=== PATIENT | female | born 1975 | race Caucasian/White ===

== ENCOUNTER → 2019-03-23 | Day surgery (SDC) | payer OTHER ==
[~2019-03-23] MED LIST: DEXAMETHASONE SOD PHOS INJ 4 MG/ML VIAL ONE; EPINEPHRINE HCL 1:1000 1ML 1 MG/ML AMP ONE; FENTANYL CITRATE/PF 100MCG/2 ML INJ ONE; FLONASE; GLYCOPYRROLATE INJ 1MG/ 5 ML SYR ONE; KETOROLAC TROMETHAMINE 30 MG/ML VIAL ONE; LIDOCAINE 1% W/EPINEPHRINE 20 ML VIAL ONE; LIDOCAINE HCL 2% LOCAL INJ 5 ML SDV VIAL INJ ONE; METOCLOPRAMIDE HCL 10 MG/2ML VIAL ONE; MIDAZOLAM HCL 2 MG/2 ML VIAL ONE; MORPHINE SULFATE INJ 4 MG/ML INJ 1ML ONE; NEOSTIGMINE 5 MG/5ML SYR ONE; NP THYROID60 MG PO; ONDANSETRON HCL INJ 2MG/ML 2ML 2 MG/ML VIAL ONE; PROPOFOL IV EMULSION 10 MG/ML 20 ML VIAL ONE; ROCURONIUM BROMIDE 10 MG/ML 5ML VIAL ONE; SEVOFLURANE INHAL SOLN 250 ML PEN BTL ONE
--- OUTSIDE RECORDS SUMMARY | 2019-03-23 06:02 | XMS REPORT | Clinical Summary ---
Author Author [facility] Address Unknown Phone Unavailable Care Team Providers Care Board Attendant Name Role Phone John Curry MD PCP Allergies No Known Allergies Medications End Date Status Medication Sig Dispensed Refills Start Date Active fluticasone (FLONASE) 50 1 spray into 0 mcg/actuation nasal spray each nostril. Active cholecalciferol, vitamin Take 2,000 0 D3, (VITAMIN D3) 2,000 Units by unit capsule capsule mouth daily. Active pediatric Chew. 0 [id number]-[id number] tablet,chewable Active drospirenone-ethinyl Take 1 tablet 0 estradiol (MICHAEL,OCELLA) by mouth 3-0.03 mg per tablet daily. Active thyroid, pork, (ARMOUR Take 60 mg by 0 THYROID) 60 mg tablet mouth daily. Active PROAIR HFA 90 INHALE 2 17 Inhaler 0 mcg/actuation PUFFS EVERY 6 8 inhalerIndications: Acute (SIX) HOURS bronchitis due to other NEEDED FOR specified organisms WHEEZING FOR UP TO 30 DAYS. 12/22/2019 Active ipratropium (ATROVENT) 2 sprays into 30 mL 12 0.03 % nasal each nostril 9 sprayIndications: Chronic every 12 maxillary sinusitis (twelve) hours. 04/29/2018 codeine-guaifenesin Take 5 mL by 180 mL 0 (GUAIFENESIN AC) 10-100 mouth 3 8 mg/5 mL (three) times liquidIndications: a day as Pharyngitis, unspecified needed for etiology cough for up to 5 days. 09/28/2018 amoxicillin-pot Take 1 tablet 14 tablet 0 clavulanate (AUGMENTIN) by mouth 2 8 875-125 mg per (two) times a tabletIndications: Acute day for 7 bacterial sinusitis days. 10/18/2018 azithromycin (ZITHROMAX) Take 2 6 tablet 0 250 MG tabletIndications: tablets the 8 Acute bronchitis due to first day, other specified organisms then 1 tablet daily for 4 days. 10/18/2018 codeine-guaifenesin Take 5 mL by 120 mL 0 (GUAIFENESIN AC) 10-100 mouth 3 8 mg/5 mL (three) times liquidIndications: Acute a day as bronchitis due to other needed for specified organisms cough for up to 5 days. 10/18/2018 methylPREDNISolone follow 21 tablet 0 (MEDROL, TOM,) 4 mg package 8 tabletIndications: Acute directions bronchitis due to other specified organisms 11/09/2018 Discontinued albuterol (PROAIR HFA) 90 Inhale 2 18 g 0 mcg/actuation puffs every 6 8 inhalerIndications: Acute (six) hours bronchitis due to other as needed for specified organisms wheezing for up to 30 days. 12/29/2018 doxycycline (MONODOX) 100 Take 1 14 capsule 0 MG capsuleIndications: capsule (100 9 Chronic maxillary mg total) by sinusitis mouth 2 (two) times a day for 7 days. Status Hospital, Clinic, or Ordered Dose Route Frequency Start End Date Other Facility Date Administered Medication Ended triamcinolone acetonide 80 mg IM once 04/24/20 (KENALOG-40) injection 80 18 8 mgIndications: Pharyngitis, unspecified etiology Ended methylPREDNISolone 80 mg IM once 09/21/20 acetate (DEPO-MEDROL) 18 8 injection 80 mgIndications: Acute bacterial sinusitis Ended methylPREDNISolone 80 mg IM once 10/07/20 acetate (DEPO-MEDROL) 18 8 injection 80 mgIndications: Pharyngitis, unspecified etiology Discontinued dexamethasone (DECADRON) 4 mg IM every 6 hours 10/07/20 injection 4 18 9 mgIndications: Pharyngitis, unspecified etiology Active Problems Problem Noted Date Acquired hypothyroidism 09/21/2018 Last Assessment & Plan: Stable. Continue current dose. Recheck level Follow up with bean sprout grower Nasal septal deviation 03/20/2018 Last Assessment & Plan: Referred to ENT for proper eval of nasal septum regarding CR. Cystitis 01/30/2018 Last Assessment & Plan: Normal pelvic exam S/s suggestive or cystitis Empiric treatment with bactrim; monitor response rtc prn Vaginitis 01/30/2018 Anemia 09/10/2017 Last Assessment & Plan: Stable. Recheck h/h Follow up in 3 months Chronic maxillary sinusitis 09/08/2017 Last Assessment & Plan: Hx and exam findings consistent with acute bacterial sinusitis. Nasal saline sprays. Nasal steroids per medication orders. doxycycline per medication orders. Screening for diabetes mellitus 09/08/2017 Body mass index (bmi) 30.0-30.9, adult 09/08/2017 Vitamin D deficiency 09/08/2017 Multiple thyroid nodules 09/08/2017 Last Assessment & Plan: Had US thyroid Dec 26, [address] Christensen, monitoring antibody levels Hot flashes 09/08/2017 Resolved Problems Problem Noted Date Resolved Date Acute bacterial sinusitis 09/21/2018 12/23/2018 Last Assessment & Plan: Hx and exam findings consistent with acute bacterial sinusitis. Nasal saline sprays. Nasal steroids per medication orders. Antihistamines per medication orders. Augmentin per medication orders. Acute bronchitis due to other specified organisms 04/30/2018 12/23/2018 Last Assessment & Plan: Hx and exam findings consistent with rhinosinusitis Plan: Cough syrup Rest, tylenol prn, hydration Return to clinic prn Fatigue 09/08/2017 12/23/2018 Last Assessment & Plan: Fatigue symptoms have greatly improved since starting [place] Thyroid by her bean sprout grower and possibly also by oral contraceptive therapy due to her menorrhagia and secondary anemia. She will continue to follow with her bean sprout grower and her flexographic press operator. She will obtain CPAP machine and start using it as soon as available. Follow-up in the office in 3 months for referral to ENT. Encounters Care Team Description Date Type Specialty Arlet Guillaume MD Screening for malignant neoplasm of breast 01/21/2019 Hospital Radiology Encounter Arlet Guillaume MD Screening for malignant neoplasm of breast (Primary Dx) 01/19/2019 Transcribe Access Orders John Curry MD Anemia, unspecified type (Primary Dx); Acquired hypothyroidism; Chronic maxillary sinusitis 12/22/2018 Office Visit Family Medicine John Curry MD Acute bronchitis due to other specified organisms 11/09/2018 Refill Family Medicine John Curry MD Acute bronchitis due to other specified organisms (Primary Dx) 10/13/2018 Orders Only Family John Holt MD Pharyngitis, unspecified etiology (Primary Dx) 10/07/2018 Office Visit Family John Holt MD Acute bacterial sinusitis (Primary Dx); Vitamin D deficiency; Iron deficiency anemia, unspecified iron deficiency anemia type; Acquired hypothyroidism; Screening for diabetes mellitus; Body mass index (bmi) 30.0-30.9, adult 09/21/2018 Office Visit Family John Holt MD Fatigue, unspecified type (Primary Dx) 06/19/2018 Office Visit Family Medicine Madeleine Gan MA 05/07/2018 Documentation Neurology Madeleine Gan MA 05/07/2018 Orders Only Neurology Emeli Mathew MD CR (obstructive sleep apnea) (Primary Dx); Chronic seasonal allergic rhinitis, unspecified trigger 05/06/2018 Office Visit Neurology John Curry MD Pharyngitis, unspecified etiology (Primary Dx) 04/24/2018 Office Visit Family Medicine Emeli Mathew MD CR (obstructive sleep apnea) (Primary Dx) 04/23/2018 Orders Only Neurology Emeli Mathew MD CR (obstructive sleep apnea) 04/12/2018 Hospital Sleep Medicine Encounter after 03/22/2018 Immunizations Name Dates Previously Given Next Due Influenza Trivalent 09/08/2017 Family History Medical History Relation Name Comments Heart attack Father Breast cancer Mother Relation Name Status Comments Father Mother Social History Date Tobacco Use Types Packs/Day Years Used Never Smoker Smokeless Tobacco: Never Used Alcohol Use Drinks/Week oz/Week Comments Yes rarely Sex Assigned at Date Recorded Not on file Industry Job Start Date Occupation Not on file Not on file Not on file Travel End Travel History Travel Start No recent travel history available. Last Filed Vital Signs Time Taken Vital Sign Reading 12/22/2018 8:55 AM TIRE TESTER Blood Pressure 135/83 12/22/2018 8:55 AM TIRE TESTER Pulse 76 12/22/2018 8:55 AM TIRE TESTER Temperature 36.4 C (97.6 F) 05/06/2018 2:12 PM CDT Respiratory Rate 20 12/22/2018 8:55 AM TIRE TESTER Oxygen Saturation 100% - Inhaled Oxygen - Concentration 12/22/2018 8:55 AM TIRE TESTER Weight 85.7 kg (189 lb) 12/22/2018 8:55 AM TIRE TESTER Height 162.6 cm (5' 4") 12/22/2018 8:55 AM TIRE TESTER Body Mass Index 32.44 Plan of Treatment Care Team Description Date Type Specialty John Curyr MD [address] [place] [address] [phone] 04/06/2019 Office Visit Family Medicine Health Maintenance Due Date Last Done Comments CERVICAL CANCER SCREENING 1994 INFLUENZA VACCINE 06/24/2019 09/08/2017, 09/08/2017 Procedures Comments Procedure Name Priority Date/Time Associated Diagnosis MAMMO BREAST SCREEN Routine 01/21/2019 Screening for malignant TOMOSYNTHESIS BILATERAL 12:40 PM TIRE TESTER neoplasm of breast PATHOLOGY CONSULTATION Routine 12/22/2018 10:08 AM TIRE TESTER CONSULT, SPECIMEN A Routine 12/22/2018 10:08 AM TIRE TESTER BILIRUBIN, FRACTIONATED Routine 12/22/2018 10:08 AM TIRE TESTER HOMOCYSTINE, PLASMA Routine 12/22/2018 10:08 AM TIRE TESTER METHYLMALONIC ACID, SERUM Routine 12/22/2018 10:08 AM TIRE TESTER T3 Routine 12/22/2018 Acquired hypothyroidism 10:08 AM TIRE TESTER T4, FREE Routine 12/22/2018 Acquired hypothyroidism 10:08 AM TIRE TESTER THYROID STIMULATING Routine 12/22/2018 Acquired hypothyroidism HORMONE 10:08 AM TIRE TESTER LDH Routine 12/22/2018 Anemia, unspecified type 10:08 AM TIRE TESTER HAPTOGLOBIN Routine 12/22/2018 Anemia, unspecified type 10:08 AM TIRE TESTER RETICULOCYTE COUNT, Routine 12/22/2018 Anemia, unspecified type AUTOMATED 10:08 AM TIRE TESTER CBC (INCLUDES DIFF/PLT) Routine 12/22/2018 Anemia, unspecified type WITH PATHOLOGIST REVIEW 10:08 AM TIRE TESTER FOLATE LEVEL Routine 12/22/2018 Anemia, unspecified type 10:08 AM TIRE TESTER VITAMIN B12 LEVEL Routine 12/22/2018 Anemia, unspecified type 10:08 AM TIRE TESTER TRANSFERRIN LEVEL Routine 12/22/2018 Anemia, unspecified type 10:08 AM TIRE TESTER FERRITIN LEVEL Routine 12/22/2018 Anemia, unspecified type 10:08 AM TIRE TESTER VITAMIN D 25 HYDROXY Routine 09/21/2018 Vitamin D deficiency LEVEL 12:00 AM CDT LIPID PANEL WITH REFLEX Routine 09/21/2018 Iron deficiency anemia, TO DIRECT LDL 12:00 AM CDT unspecified iron deficiency anemia type COMPREHENSIVE METABOLIC Routine 09/21/2018 Iron deficiency anemia, PANEL 12:00 AM CDT unspecified iron deficiency anemia type T4, FREE Routine 09/21/2018 Acquired hypothyroidism 12:00 AM CDT THYROID STIMULATING Routine 09/21/2018 Acquired hypothyroidism HORMONE 12:00 AM CDT HEMOGLOBIN A1C Routine 09/21/2018 Screening for diabetes 12:00 AM CDT mellitus Body mass index (bmi) 30.0-30.9, adult CBC WITH PLATELET AND Routine 09/21/2018 Iron deficiency anemia, DIFFERENTIAL 12:00 AM CDT unspecified iron deficiency anemia type TOTAL IRON BINDING Routine 09/21/2018 Iron deficiency anemia, CAPACITY 12:00 AM CDT unspecified iron deficiency anemia type TRANSFERRIN LEVEL Routine 09/21/2018 Iron deficiency anemia, 12:00 AM CDT unspecified iron deficiency anemia type FERRITIN LEVEL Routine 09/21/2018 Iron deficiency anemia, 12:00 AM CDT unspecified iron deficiency anemia type POCT RAPID STREP A Routine 04/24/2018 Pharyngitis, unspecified 4:14 PM CDT etiology GENERAL SLEEP STUDY Routine 04/24/2018 CR (obstructive sleep 2:37 PM CDT apnea) after 03/22/2018 Results * Mammo Breast Screen Tomosynthesis Bilateral (01/21/2019 12:40 PM TIRE TESTER) Narrative Performed At PROCEDURE: MAMMO BREAST SCREEN TOMOSYNTHESIS BILATERAL [facility] Computer aided detection was utilized for the interpretation of the digital bilateral screening mammography with tomosynthesis. COMPARISON: Prior studies dating back to 09/29/2014 DENSITY: The breast parenchyma is heterogeneously dense, decreasing the sensitivity of the study. There is postsurgical changes in the right breast. There are benign scattered calcifications in both breasts. There is no suspicious new masses, architectural distortions or grouped calcifications. IMPRESSION:No mammographic evidence of malignancy. RECOMMENDATION: Comparison with physical exam and annual screening mammography. BI-RADS 2: Benign. This facility is accredited by the [employer] for Mammography. A negative x-ray report should not delay biopsy if a dominant or clinically suspicious mass is present.Not all cancers are identified by x-ray. [id number] Performing Organization Address City/[facility]/Zipcode Phone Number ERIN [address] [place] [address] * Bilirubin, Fractionated (12/22/2018 10:08 AM TIRE TESTER) Total bilirubin 0.2 0.2 - 1.2 mg/dL [facility] Bilirubin direct 0.0 < OR=0.2 mg/dL [employer] [facility] Bilirubin, indirect 0.2 0.2 - 1.2 mg/dL (calc) [employer] [facility] Narrative Performed At FASTING:NO [facility] FASTING: NO Resulting Agency Comment Performing Organization Information: Site ID: [id number] Name: [facility] Address: [address] [place] [address] Director: Litzy López Performing Organization Address City/[facility]/Zipcode Phone Number [employer] [place] [address] [place] [phone] * PATHOLOGY CONSULTATION (12/22/2018 10:08 AM TIRE TESTER) Pathologist Comment: [facility] Litzy López MD, Board [facility] Certified in Anatomic Pathology, [phone] (electronic signature) Narrative Performed At FASTING:NO [facility] FASTING: NO Resulting Agency Comment Performing Organization Information: Site ID: [id number] Name: [email or web address] [email or web address] [facility], Address: [address] [place] [address] Director: Litzy López MD Performing Organization Address [facility] Phone Number [facility] [address] [place] [phone] [facility] * CONSULT, SPECIMEN A (12/22/2018 10:08 AM TIRE TESTER) Source Comment: PATHOLOGY REVIEW OF [facility] PERIPHERAL SMEARS [facility] Micro description Comment: [facility] The peripheral blood smear has [facility] been reviewed. Diagnosis Comment: [facility] WBC morphology appears [facility] unremarkable. Normochromic normocytic anemia. Estimated platelet count appears adequate. Comment Comment: [facility] Clinical correlation and [facility] follow up are recommended if clinically indicated. Narrative Performed At FASTING:NO [facility] FASTING: NO Resulting Agency Comment Performing Organization Information: Site ID: [id number] Name: [email or web address] [email or web address] [facility], Address: [address] [place] [address] Director: Litzy López MD Performing Organization Address [facility] Phone Number [facility] [address] [place] [phone] [facility] * CBC (INCLUDES DIFF/PLT) WITH PATHOLOGIST REVIEW (12/22/2018 10:08 AM TIRE TESTER) WBC 9.3 3.8 - 10.8 Thousand/uL [facility] RBC 3.78 (L) 3.80 - 5.10 Million/uL [facility] HGB 10.5 (L) 11.7 - 15.5 g/dL [facility] HCT 32.2 (L) 35.0 - 45.0 % [facility] MCV 85.2 80.0 - 100.0 fL [facility] MCH 27.8 27.0 - 33.0 pg [facility] MCHC 32.6 32.0 - 36.0 g/dL [facility] RDW 13.3 11.0 - 15.0 % [facility] Platelet count 330 140 - 400 Thousand/uL [employer] [place] MPV 10.3 7.5 - 12.5 fL [facility] [employer] [place] Neutrophils, absolute 5,487 1,500 - 7,800 cells/uL [facility] [employer] [place] Lymphocytes, absolute 3,069 850 - 3,900 cells/uL [facility] [employer] [place] Monocytes, absolute 651 200 - 950 cells/uL [facility] [employer] [place] Eosinophils, absolute 93 15 - 500 cells/uL [facility] [employer] [place] Basophils, absolute 0 0 - 200 cells/uL [facility] [employer] [place] Neutrophils 59 % [facility] [employer] [place] Lymphocytes 33 % [facility] [employer] [place] Monocytes 7 % [facility] [employer] [place] Eosinophils 1 % [facility] [employer] [place] Basophils + RC 0 % [facility] [employer] [place] Comment Comment: PATHOLOGIST REVIEW [employer] WILL REPORT UNDER SEPARATE [place] COVER Specimen Blood Narrative Performed At FASTING:NO [facility] FASTING: NO Resulting Agency Comment Performing Organization Information: Site ID: [id number] Name: [facility] Address: [address] [place] [phone] Director: Litzy López Performing Organization Address [facility] [place] [address] * Reticulocyte count, automated (12/22/2018 10:08 AM TIRE TESTER) Retic count, manual 1.4 % [facility] [employer] [place] Retic absolute, auto 53,480 20,000 - 80,000 cells/uL [facility] [employer] [place] Specimen Blood Narrative Performed At FASTING:NO [facility] FASTING: NO Resulting Agency Comment Performing Organization Information: Site ID: [id number] Name: [facility] Address: [address] [place] [phone] Director: Litzy López Performing Organization Address [facility] [place] [address] * Homocystine, plasma (12/22/2018 10:08 AM TIRE TESTER) Homocysteine 6.1 <10.4 umol/L [facility] Comment: DIAGNOSTICS/[facility] Homocysteine is increased by [facility] functional deficiency of folate or vitamin B12. Testing for methylmalonic acid differentiates between these deficiencies. Other causes of increased homocysteine include renal failure, folate antagonists such as methotrexate and phenytoin, and exposure to nitrous oxide. Narrative Performed At FASTING:NO [facility] FASTING: NO Resulting Agency Comment Performing Organization Information: Site ID: [id number] Name: [facility], Address: [address] [place] [phone] Director: Sepideh Gipson MD,PhD,BEE Performing Organization Address [facility] Phone Number [employer] [address] [place] [address] [facility] [address] * Methylmalonic acid, serum (12/22/2018 10:08 AM TIRE TESTER) Methylmalonic acid 168 87 - 318 nmol/L [facility] Comment: [employer] This test was developed and [facility] its analytical performance characteristics have been determined by [facility]. It has not been cleared or approved by FDA. This assay has been validated pursuant to the CLIA regulations and is used for clinical purposes. Narrative Performed At FASTING:NO [facility] FASTING: NO Resulting Agency Comment Performing Organization Information: Site ID: EZ Name: [facility], Address: [address] [place] [phone] Director: Sepideh Gipson MD,PhD,BEE Performing Organization Address [facility] Phone Number [employer] [address] [place] [address] [facility] [address] * T3 (12/22/2018 10:08 AM TIRE TESTER) T3 239 (H) 76 - 181 ng/dL [employer] [place] Specimen Blood Narrative Performed At FASTING:NO [facility] FASTING: NO Resulting Agency Comment Performing Organization Information: Site ID: RGA Name: [facility] Address: [address] [place] [phone] Director: Litzy López Performing Organization Address [facility] Phone Number [employer] [address] [address] * Transferrin level (12/22/2018 10:08 AM TIRE TESTER) Only the most recent of 2 results within the time period is included. Transferrin 256 188 - 341 mg/dL [employer] II Specimen Blood Narrative Performed At FASTING:NO [facility] FASTING: NO Resulting Agency Comment Performing Organization Information: Site ID: [id number] Name: [facility] Address: [address] [place] [address] Director: Dr. Karel Barry Performing Organization Address City/[facility] Phone Number [email or web address] [address] [place] [address] II * Thyroid stimulating hormone (12/22/2018 10:08 AM TIRE TESTER) Only the most recent of 2 results within the time period is included. TSH 2.09 mIU/L [employer] Comment: [place] Reference Range > or=20 Years0.40-4.50 Ranges First trimester0.26-2.66 Second trimester 0.55-2.73 Third trimester0.43-2.91 Specimen Blood Narrative Performed At FASTING:NO [facility] FASTING: NO Resulting Agency Comment Performing Organization Information: Site ID: RGA Name: [facility] Address: [address] [place] [phone] Director: Litzy López Performing Organization Address [facility] Phone Number [employer] [address] [address] * T4, free (12/22/2018 10:08 AM TIRE TESTER) Only the most recent of 2 results within the time period is included. T4, free 1.3 0.8 - 1.8 ng/dL [employer] [place] Specimen Blood Narrative Performed At FASTING:NO [facility] FASTING: NO Resulting Agency Comment Performing Organization Information: Site ID: RGA Name: [facility] Address: [address] [place] [phone] Director: Litzy López Performing Organization Address [facility] Phone Number [employer] [address] [address] * LDH (12/22/2018 10:08 AM TIRE TESTER) LDH 119 100 - 200 U/L [employer] [place] Specimen Blood Narrative Performed At FASTING:NO [facility] FASTING: NO Resulting Agency Comment Performing Organization Information: Site ID: RGA Name: [facility] Address: [address] [place] [phone] Director: Litzy López Performing Organization Address [facility] Phone Number [employer] [address] [address] * Haptoglobin (12/22/2018 10:08 AM TIRE TESTER) Haptoglobin 162 43 - 212 mg/dL [employer] Specimen Blood Narrative Performed At FASTING:NO [facility] FASTING: NO Resulting Agency Comment Performing Organization Information: Site ID: [id number] Name: [facility] Address: [address] [place] [phone] Director: Dr. Karel Barry Performing Organization Address [facility] Phone Number [employer] [address] II * Folate level (12/22/2018 10:08 AM TIRE TESTER) Folate 12.8 ng/mL [employer] Comment: [place] Reference Range Low: <3.4 Borderline:3.4-5.4 Normal:>5.4 Specimen Blood Narrative Performed At FASTING:NO [facility] FASTING: NO Resulting Agency Comment Performing Organization Information: Site ID: RGA Name: [facility] Address: [address] [place] [phone] Director: Litzy López Performing Organization Address [facility] Phone Number [employer] [address] [address] * Ferritin level (12/22/2018 10:08 AM TIRE TESTER) Only the most recent of 2 results within the time period is included. Ferritin level 77 10 - 232 ng/mL [employer] [place] Specimen Blood Narrative Performed At FASTING:NO [facility] FASTING: NO Resulting Agency Comment Performing Organization Information: Site ID: RGA Name: [facility] Address: [address] [place] [phone] Director: Litzy López Performing Organization Address [facility] Phone Number [employer] [address] [address] * Vitamin B12 level (12/22/2018 10:08 AM TIRE TESTER) Vitamin B12 346 200 - 1,100 pg/mL [facility] Comment: [place] Please Note: Although the reference range for vitamin B12 is 200-1100 pg/mL, it has been reported that between 5 and 10% of patients with values between 200 and 400 pg/mL may experience neuropsychiatric and hematologic abnormalities due to occult B12 deficiency; less than 1% of patients with values above 400 pg/mL will have symptoms. Specimen Blood Narrative Performed At FASTING:NO QUEST FASTING: NO Resulting Agency Comment Performing Organization Information: Site ID: [facility] Name: [facility] Address: [address] [place] [phone] Director: Litzy López Performing Organization Address [facility] [place] [address] * LIPID PANEL WITH REFLEX TO DIRECT LDL (09/21/2018 12:00 AM CDT) Cholesterol, total 159 <200 mg/dL [facility] HDL cholesterol 47 (L) >50 mg/dL [employer] [facility] Triglycerides 150 (H) <150 mg/dL [employer] [facility] LDL cholesterol 87 mg/dL (calc) [employer] calculated Comment: [place] Reference range: <100 Desirable range <100 mg/dL for primary prevention; <70 mg/dL for patients with CHD or diabetic patients with > or=2 CHD risk factors. LDL-C is now calculated using the Bhupinder-Tyler calculation, which is a validated novel method providing better accuracy than the Friedewald equation in the estimation of LDL-C. Bhupinder TESFAYE et al. YIFAN. 2013;310(19): 9909-1353 (http://education.ToyTalk.com/faq/FQB149) Cholesterol/HDL ratio 3.4 <5.0 (calc) [employer] [place] Non-HDL cholesterol 112 <130 mg/dL (calc) [employer] Comment: [place] For patients with diabetes plus 1 major ASCVD risk factor, treating to a non-HDL-C goal of <100 mg/dL (LDL-C of <70 mg/dL) is considered a therapeutic option. Narrative Performed At FASTING:YES QUEST FASTING: YES Resulting Agency Comment Performing Organization Information: Site ID: A Name: [facility] Address: [address] [place] [phone] Director: Litzy López Performing Organization Address [facility] Phone Number [facility] [place] [address] [place] [address] * Total iron binding capacity (09/21/2018 12:00 AM CDT) Iron level 54 40 - 190 mcg/dL [employer] [place] Iron binding capacity 343 250 - 450 mcg/dL (calc) [employer] [place] Iron saturation 16 11 - 50 % (calc) [employer] [place] Specimen Blood Narrative Performed At FASTING:YES QUEST FASTING: YES Resulting Agency Comment Performing Organization Information: Site ID: [facility] Name: [facility] Address: [address] [place] [phone] Director: Litzy López Performing Organization Address [facility] [place] [address] * Vitamin D 25 hydroxy level (09/21/2018 12:00 AM CDT) Vitamin D, 25-hydroxy 38 30 - 100 ng/mL [employer] Comment: [place] Vitamin D Status 25-OH Vitamin D: Deficiency: <20 ng/mL Insufficiency: 20 - 29 ng/mL Optimal: > or=30 ng/mL For 25-OH Vitamin D testing on patients on D2-supplementation and patients for whom quantitation of D2 and D3 fractions is required, the QuestAssureD(TM) 25-OH VIT D, (D2,D3), LC/MS/MS is recommended: order code 67134 (patients >2yrs). For more information on this test, go to: http://education.1000 Corks.Playrific/faq/APE946 (This link is being provided for informational/educational purposes only.) Specimen Blood Narrative Performed At FASTING:YES QUEST FASTING: YES Resulting Agency Comment Performing Organization Information: Site ID: [facility] Name: [facility] Address: [address] [place] [phone] Director: Litzy López Performing Organization Address [facility] Phone Number [facility] [address] [phone] * CBC with platelet and differential (09/21/2018 12:00 AM CDT) WBC 8.4 3.8 - 10.8 Thousand/uL [employer] [place] RBC 4.00 3.80 - 5.10 Million/uL [employer] [place] HGB 11.0 (L) 11.7 - 15.5 g/dL [employer] [place] HCT 33.3 (L) 35.0 - 45.0 % [employer] [place] MCV 83.3 80.0 - 100.0 fL [employer] [place] MCH 27.5 27.0 - 33.0 pg [employer] [place] MCHC 33.0 32.0 - 36.0 g/dL [employer] [place] RDW 13.1 11.0 - 15.0 % [employer] [place] Platelet count 330 140 - 400 Thousand/uL [employer] [place] MPV 10.2 7.5 - 12.5 fL [employer] [place] Neutrophils, absolute 4,914 1,500 - 7,800 cells/uL [employer] [place] Lymphocytes, absolute 2,848 850 - 3,900 cells/uL [employer] [place] Monocytes, absolute 512 200 - 950 cells/uL [employer] [place] Eosinophils, absolute 92 15 - 500 cells/uL [employer] [place] Basophils, absolute 34 0 - 200 cells/uL [employer] [place] Neutrophils 58.5 % [employer] [place] Lymphocytes 33.9 % [employer] [place] Monocytes 6.1 % [employer] [place] Eosinophils 1.1 % [employer] [place] Basophils + RC 0.4 % [employer] [place] Specimen Blood Narrative Performed At FASTING:YES QUEST FASTING: YES Resulting Agency Comment Performing Organization Information: Site ID: [facility] Name: [facility] Address: [address] [place] [phone] Director: Litzy López Performing Organization Address City/State/Zipcode Phone Number [facility] [employer] [place] [phone] * Hemoglobin A1c (09/21/2018 12:00 AM CDT) Hemoglobin A1C 5.3 <5.7 % of total Hgb [employer] Comment: [place] For the purpose of screening for the presence of diabetes: <5.7% Consistent with the absence of diabetes 5.7-6.4%Consistent with increased risk for diabetes (predi abetes) > or=6.5%Consistent with diabetes This assay result is consistent with a decreased risk of diabetes. Currently, no consensus exists regarding use of hemoglobin A1c for diagnosis of diabetes in children. According to [place] Diabetes Association (ADA) guidelines, hemoglobin A1c <7.0% represents optimal control in non- diabetic patients. Different metrics may apply to specific patient populations. Standards of Medical Care in Diabetes(ADA). Specimen Blood Narrative Performed At FASTING:YES QUEST FASTING: YES Resulting Agency Comment Performing Organization Information: Site ID: [facility] Name: [facility] Address: [address] [place] [address] Director: Litzy López Performing Organization Address City/State/Zipcode Phone Number [place] [employer] [place] [address] [place] [phone] * Comprehensive metabolic panel (09/21/2018 12:00 AM CDT) Glucose 118 (H) 65 - 99 mg/dL [employer] Comment: [place] Fasting reference interval For someone without known diabetes, a glucose value between 100 and 125 mg/dL is consistent with prediabetes and should be confirmed with a follow-up test. BUN, whole blood 9 7 - 25 mg/dL [employer] [place] Creatinine 0.57 0.50 - 1.10 mg/dL [employer] [place] EGFR Non-Afr. [place] 112 > OR=60 mL/min/1.73m2 [employer] [place] EGFR 130 > OR=60 mL/min/1.73m2 [employer] [place] BUN/creatinine ratio NOT APPLICABLE 6 - 22 (calc) [employer] [place] Sodium 140 135 - 146 mmol/L [employer] [place] Potassium 4.1 3.5 - 5.3 mmol/L [employer] [place] Chloride 108 98 - 110 mmol/L [employer] [place] CO2 24 20 - 32 mmol/L [employer] [place] Calcium 9.1 8.6 - 10.2 mg/dL [employer] [place] Protein 6.9 6.1 - 8.1 g/dL [employer] [place] Albumin, S 3.9 3.6 - 5.1 g/dL [employer] [place] Globulin, total 3.0 1.9 - 3.7 g/dL (calc) [employer] [place] Albumin/globulin ratio 1.3 1.0 - 2.5 (calc) [employer] [place] Total bilirubin 0.3 0.2 - 1.2 mg/dL [employer] [place] Alkaline phosphatase 67 33 - 115 U/L [employer] [place] AST 12 10 - 35 U/L [employer] [place] ALT 10 6 - 29 U/L [employer] [place] Specimen Blood Narrative Performed At FASTING:YES QUEST FASTING: YES Resulting Agency Comment Performing Organization Information: Site ID: [facility] Name: [facility] Address: [address] [place] [address] Director: Litzy López Performing Organization Address City/State/Zipcode Phone Number [facility] [place] [phone] [place] [address] * POC rapid strep A (04/24/2018 4:14 PM CDT) Rapid strep A antigen Negative Negative result Specimen Swab * General sleep study (04/24/2018 2:37 PM CDT) Narrative Performed At after 03/22/2018 Insurance Payer Benefit Subscriber ID Type Phone Address Plan / Group CIGNA CIGNA OPEN xxxxxxxxxxx HMO ACCESS/NET WORK Advance Directives Patient has advance care planning documents on file. For more information, mich pereyra contact: Milton Anne [address] [place] [address]
--- OUTSIDE RECORDS SUMMARY | 2019-03-23 06:02 | XMS REPORT | Clinical Summary ---
Author Author [facility] Address Unknown Phone Unavailable Care Team Providers Care Accounting Auditor Name Role Phone Pcp, No PCP Unavailable Allergies No Known Allergies Medications End Date Status Medication Sig Dispensed Refills Start Date Active fluticasone (FLONASE) 50 1 spray by 0 mcg/actuation nasal spray Nasal route daily. Active Problems Not on file Family History Medical History Relation Name Comments Heart disease Father Cancer Mother Relation Name Status Comments Father Mother Social History Date Tobacco Use Types Packs/Day Years Used Never Smoker Alcohol Use Drinks/Week oz/Week Comments No Sex Assigned at Date Recorded Not on file Industry Job Start Date Occupation Not on file Not on file Not on file Travel End Travel History Travel Start No recent travel history available. Last Filed Vital Signs Not on file Plan of Treatment Not on file Results Not on fileafter 03/22/2018 Insurance Payer Benefit Subscriber ID Type Phone Address Plan / Group CIGNA - MGD CARE CIGNA xxxxxxxxxxx HMO/POS HMO/POS/OP EN ACCESS
--- OUTSIDE RECORDS SUMMARY | 2019-03-23 06:02 | XMS REPORT ---
Author Author [facility] Address Unknown Phone Unavailable Care Team Providers Care Teaching Fellow Name Role Phone Andrew ANTONIO Unavailable Unavailable Problems This patient has no known problems. Allergies, Adverse Reactions, Alerts This patient has no known allergies or adverse reactions. Medications This patient has no known medications. Results Test Description Test Time Test Comments Text Results Atomic Results Result Comments CYTOLOGY 2017-02-19 08:58:00 Medical Cytology Report Case: [id number] Aut horizing Provider: Fady Antonio MD Ordering Provider: Fady Antonio MD Ordering Location: [facility] Radiology Main Collected: 02/18/2017 1330 Pathologist: Baltaazr العراقي MD Received: 02/18/2017 1332 Specimen: Thyroid, Left DIAGNOSTIC CATEGORY: BENIGNLEFT LOBE THYROID GLAND NODULE, FNA BY RADIOLOGIST (COLTON)(DIRECT SMEARS AND CELL BLOCK OF ASPIRATE): - BENIGN FOLLICULAR NODULE (ADENOMATOID NODULE) Signing Pathologist Direct Phone Line: [phone] smears and cell block material material show nests and sheets of bland follicular cells associated with background colloid.77092, 01913, 55763(1.0 x 1.0 x 1.2 cm) left lower pole thyroid noduleLEFT LOWER POLE THYROID NODULE FNA3 passes; 5 direct smear slides; cell blockCollected: [id number]: [id number] NUMBER OF FOLLICULAR CELLS FOR EVALUATION (1:32PM, RL)[facility], Department of Pathology, [address] [place] [address], [facility], [address] [place] [address], CYTOLOGY 2017-01-20 18:08:00 Medical Cytology Report Case: [id number] Aut horizing Provider: Fady Antonio MD Ordering Provider: Fady Antonio MD Ordering Location: [facility] Radiology Main Collected: 01/14/2017 9820 Pathologist: Carmela Richardson MD Received: 01/14/2017 7218 Specimen: Thyroid, Left, lower pole LEFT LOBE LOWER POLE THYROID GLAND NODULE, FNA BY RADIOLOGIST (FRIDA)(CYTOSPINS AND CELL BLOCK OF ASPIRATE): - DIAGNOSTIC CATEGORY: NONDIAGNOSTIC/UNSATISFACTORY - NON-DIAGNOSTIC ASPIRATE; INSUFFICIENT CELLULARITY (SEE COMMENT) Signing Pathologist Direct Phone Line: [phone] and cell block sections show scattered colloid fragments and blood elements. Specimen does not meet cellular adequacy defined as 6 well visualized cell groups (each group with at least 10 cells). Clinical/radiological correlation is indicated to determine the need for further close follow-up and/or re-aspiration. Please see cytopathology report [id number] for further evaluation.75272, 28180(1.0 x 0.97 cm) left lower pole thyroid noduleLEFT LOWER POLE THYROID NODULE FNA27 ml RPMI; 4 cytospins; cell blockCollected: [id number]: [id number] [facility], Department of Pathology, [address] [place] [address], baylor [facility], Department of Pathology, [address] [place] [address], CYTOLOGY 2017-01-20 18:07:00 Medical Cytology Report Case: [id number] Aut horizing Provider: Fady Antonio MD Ordering Provider: Fady Antonio MD Ordering Location: [facility] Radiology Main Collected: 01/14/2017 5927 Pathologist: Carmela Richardson MD Received: 01/14/2017 9198 Specimen: Thyroid, Left, upper pole LEFT LOBE UPPER POLE THYROID GLAND NODULE, FNA BY RADIOLOGIST (FRIDA)(CYTOSPINS AND CELL BLOCK OF ASPIRATE): - DIAGNOSTIC CATEGORY: NONDIAGNOSTIC/UNSATISFACTORY - NON-DIAGNOSTIC ASPIRATE; INSUFFICIENT CELLULARITY (SEE COMMENT) Signing Pathologist Direct Phone Line: [phone] and cell block sections show scattered colloid fragments, blood elements, and rare clusters of bland follicular cells. Specimen does not meet cellular adequacy defined as 6 well visualized cell groups (each group with at least 10 cells). Clinical/radiological correlation is indicated to determine the need for further close follow-up and/or re-aspiration.Please see cytopathology report [id number] for further evaluation.55234, 33892(1.3 x 0.65 x 0.8 cm) left upper pole thyroid noduleLEFT UPPER POLE THYROID NODULE FNA25 ml in RPMI; 4 cytospins; cell blockCollected: [id number]: [id number] [facility], Department of Pathology, [address] [place] [address], Nkwira [facility], Department of Pathology, [address] [place] [address],
--- NOTE | 2019-03-23 08:02 | Pre Op History & Physical ---
DATE OF SURGERY: 03/23/2019 CHIEF COMPLAINT: Chronic sinusitis, nasal obstruction. HISTORY OF PRESENT ILLNESS: This 45-year-old female has history of nasal obstruction, postnasal drip, frontal and maxillary pain. She also has multiple sinus infections over the past few years. The patient had a sinuplasty in 2015, was doing well until January of 2018. The patient's condition has been treated with topical nasal steroid, decongestant, antibiotics with no improvement. The patient has been treated with more than 3-4 months of antibiotics including Bactrim multiple doses and Ceftin with no improvement. 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 Maxillary sinus involvement bilaterally and also sphenoid sinus involvement. Also showed that she has a deviated nasal septum to the left side. REVIEW OF SYSTEMS: Show no recent cardiovascular, respiratory, or GI problem. PAST MEDICAL HISTORY: The patient has no significant medical problem. PAST SURGICAL HISTORY: She has previous C-sections x2, right breast lumpectomy, and sinuplasty. ALLERGIES: SHE HAS NO KNOWN ALLERGY TO MEDICATION. MEDICATION: She is on Flonase and Benadryl as needed. SOCIAL HISTORY: Nonsmoker and nondrinker. FAMILY HISTORY: Noncontributory. PHYSICAL EXAMINATION: VITAL SIGNS: On examination, the patient's vital signs were within normal limits. HEENT: Ear exam showed normal tympanic membrane bilaterally. Nasal exam showed hypertrophy of the inferior turbinate. Oropharynx and oral cavity showed no obvious abnormality. NECK: No lymph node. No thyroid palpable. CHEST: Showed good air entry bilaterally. CARDIOVASCULAR: Show S1 and S2. No murmur noted. ASSESSMENT AND PLAN: Ms. Vivar has chronic sinusitis and nasal obstruction, which has been resistant to 3 months of antibiotics treatment. The suggested treatment is endoscopic sinus surgery, septoplasty, resection of inferior turbinate, and other necessary procedure. The complication of procedure includes but not limited to bleeding, infection, CSF leak, blindness, double vision, angiitis, septal perforation, septal hematoma, persistent nasal obstruction, persistent nasal crusting, nasal deformity, recurrence of the sinus problem. The alternative will be continue observation, continue antibiotic therapy, topical nasal steroid therapy, systemic steroid therapy, decongestant. The patient has elected to undergo surgical procedure. MD OTTO Berger/FREDRICK /[id number]
[2019-03-23 11:00] VITALS: BP 111/70
--- NOTE | 2019-03-23 16:25 | Operative Report ---
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 OPERATIVE PROCEDURE: Bilateral anterior and posterior ethmoidectomy, bilateral maxillary sinus antrostomy, bilateral resection of tissue from maxillary antrum, left sphenoidectomy, septoplasty, right resection of sandy bullosa, bilateral nasal valve repair with flaps. ANESTHESIA: Anesthesiology group. INDICATION: This 44-year-old female has a history of nasal obstruction, postnasal drip, discharge from her nose. Her condition has been treated with more than 10 weeks of antibiotics, topical nasal steroid, decongestant with no improvement. On examination, she was noted to have a subluxation of the septum to the right side with deviated nasal septum with a spur about 40% anteriorly on the left. 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 It was decided endoscopic sinus surgery, septoplasty, nasal valve reconstruction, and other necessary procedures will be beneficial for her. DESCRIPTION OF PROCEDURE: The patient was taken to operating room, put under general anesthesia, endotracheally intubated. Nose was injected with 1% Xylocaine with 1:100,000 epinephrine for hemostasis. Epinephrine-soaked pledget was inserted in nose and subsequently removed. The left paranasal sinuses were approached first. Middle turbinate was medialized. The bulla ethmoidalis was entered and anterior and posterior ethmoid sinuses were dissected in a systematic fashion. Care was taken during dissection to ascertain, although it was not entered. Inflamed tissue in ethmoid sinuses was dissected in a systematic fashion. Using a straight probe, the sphenoid sinus was entered through the natural ostium and this was enlarged using a micro shaver on the left side. After left sphenoid sinus was entered, any inflamed tissue was dissected using a micro shaver. Using a curved probe, natural ostium of maxillary sinus was entered. This was enlarged anteriorly and posteriorly using a backbiter and Thru-Cut forceps respectively. The maxillary sinus was entered and examined, inflamed tissue in the maxillary sinus was dissected using the micro shaver. The right paranasal sinus was entered. Using the micro shaver, the lateral portion of the middle turbinate was dissected by resecting the sandy bullosa. The bulla ethmoidalis was entered. Both anterior and posterior ethmoid sinuses were dissected in a systematic fashion. Care was taken during dissection to ascertain, although it was entered. The inflamed tissue in the ethmoid sinuses especially in the posterior ethmoid sinus was dissected in a systematic fashion. Using a curved probe, the natural ostium of the maxillary sinus was entered. This was enlarged anteriorly and posteriorly using a backbiter and Thru-Cut forceps respectively. The maxillary sinus was entered and re-examined with a 45-degree endoscope. The inflamed tissue in the maxillary sinus was dissected using the micro shaver. The septoplasty was performed. A hemitransfixion incision was done on the left side. Mucoperichondrial flap was elevated on the left. The bony cartilaginous junction was encountered and this was . The perpendicular plate of the ethmoid was transected. This was removed along with the vomer. The septal spur cartilaginous portion removed using a [place] elevator and the bony spur using a 4 mm straight chisel. The quadrangular cartilage after being freed from posterior inferior constrain was able to swing back in the midline. The subluxed septum to the left side was able to be corrected after the septal constrain and the posterior and inferior constrain were released. The hemitransfixion incision was closed using 4-0 chromic suture in an interrupted fashion. The septal whipstitch was done using 4-0 plain gut suture to reapproximate the mucoperichondrial flap and prevent septal hematoma formation. NasoPore was inserted in the sinus cavities on either side. This was done to prevent synechiae formation and for hemostasis. The nasal valve repair was undertaken. Left nasal valve was approached first. Both nasal valve area were injected with 1% Xylocaine with 1:100,000 epinephrine. An incision was made in the intercartilaginous area. A composite flap of lower lateral cartilage and endonasal mucosa was elevated. This composite flap was rotated superiorly and laterally. This was sutured in place with the incision closed using 4-0 Prolene suture. A mattress suture of 3-0 Ethilon was done with a jvufijf-nne-sllomau suture to keep the flap in place, two of these were used. The right nasal valve repair was undertaken. An incision was made in the intercartilaginous area. Composite flap of lower lateral cartilage and endonasal mucosa was elevated. The composite flap was rotated superiorly and laterally. The incision was closed using 4-0 chromic suture in interrupted fashion. The flap was further suture in place using a mattress suture of 3-0 Ethilon suture, two of these were used. Mattress suture was used to keep the nasal valve in place. The patient tolerated the above procedure well with estimated blood loss of about 20 mL. She was able to be transferred to recovery room in stable condition. The patient was given 20 mg of Decadron intraoperatively. MD MARIAH BergerH/MODL /[id number]
== END | disposition home or self-care (01) ==
LOC: OR 05:59 → EDSEX 08:00
PROVIDERS: ATTEND Otolaryngology Otolaryngology/Facial Plastic Surgery
DX: J32.0 Chronic maxillary sinusitis (principal); J32.2 Chronic ethmoidal sinusitis; J32.3 Chronic sphenoidal sinusitis; J34.89 Other specified disorders of nose and nasal sinuses; M95.0 Acquired deformity of nose; J34.2 Deviated nasal septum; E06.3 Autoimmune thyroiditis
CPT/HCPCS: 30465; 30520; 31240; 31259; 31267; 81025; 88300; 88305; J0171; J1100; J1885; J2001; J2250; J2270; J2405; J2704; J2765; J3490